=== PATIENT | female | born 1940 | race Caucasian/White ===

== ENCOUNTER → 2017-06-22 | Day surgery (SDC) | payer MEDICARE, OTHER ==
[2017-06-20 12:31] LABS: BASOPHILS % 0.6 % (0.0-1.0); EOSINOPHILS # (AUTO) 0.1 (0.0-0.4); EOSINOPHILS % 1.4 % (0.0-6.0); HEMATOCRIT 38.9 % (34.2-44.1); HEMOGLOBIN 13.1 g/dL (12.0-16.0); LYMPHOCYTES # (AUTO) 2.1 (1.0-3.2); LYMPHOCYTES % 29.4 % (18.0-39.1); MEAN CORPUSCULAR HEMOGLOBIN 30.3 pg (28-32); MEAN CORPUSCULAR HGB CONC 33.7 g/dL (31-35); MONOCYTES # (AUTO) 0.7 (0.2-0.8); NEUTROPHILS # (AUTO) 4.1 (2.1-6.9); PLATELET COUNT 279 x10e3/uL (140-360); RED BLOOD COUNT 4.32 x10e6/uL (3.6-5.1); RED CELL DISTRIBUTION WIDTH 12.7 % (11.7-14.4)
[2017-06-20 12:42] LABS: INR 1.03; PROTHROMBIN TIME 12.7 seconds (11.9-14.5)
[2017-06-20 12:43] LABS: PARTIAL THROMBOPLASTIN TIME 31.8 seconds (23.8-35.5)
[2017-06-20 12:50] LABS: ANION GAP 13.6 mmol/L (8-16); BLOOD UREA NITROGEN 13 mg/dL (7-26); BUN/CREATININE RATIO 16 (6-25); CALCIUM 9.5 mg/dL (8.4-10.2); CARBON DIOXIDE 25 mmol/L (22-29); CHLORIDE 106 mmol/L (98-107); CHOL/HDL RATIO 3.5 (3.0-3.6); CHOLESTEROL 171 MD/DL (0-199); CREATININE, SERUM 0.83 mg/dL (0.57-1.11); EST GLOMERULAR FILTRATION RATE > 60 ML/MIN (60-); GLUCOSE 94 mg/dL (74-118); HDL CHOLESTEROL 49 MG/DL (40-60); LDL CHOLESTEROL 62 MG/DL (60-130); POTASSIUM 4.6 mmol/L (3.5-5.1); SODIUM 140 mmol/L (136-145); TRIGLYCERIDES 300 MG/DL (0-149)
--- NOTE | 2017-06-20 12:52 | Diagnostic Imaging Report ---
PROCEDURE: Frontal and lateral views of the chest. COMPARISON: Chest radiograph 12/03/2016 INDICATIONS: PRE-OPERATIVE FOR HEART CATHETER FINDINGS: Lines/tubes: None. Lungs: The lungs are well inflated and clear. There is no evidence of pneumonia or pulmonary edema. Pleura: There is no pleural effusion or pneumothorax. Heart and mediastinum: Aortic calcifications. The heart and the mediastinum are normal. Bones: No acute bony abnormality. Mild degenerative changes of the spine. Osseous demineralization. Upper abdomen: Surgical clips overlying the abdomen on lateral view likely represent cholecystectomy clips. Persistent focal eventration of the anterior right hemidiaphragm. IMPRESSION: No acute cardiopulmonary disease. Dictated by: Dereje Arthur M.D. on 06/20/2017 at 12:51 Electronically approved by: Dereje Arthur M.D. on 06/20/2017 at 12:51
[~2017-06-22] VITALS: Ht 166.4 cm; Wt 99.8 kg
[~2017-06-22] MED LIST: ALLEGRA ALLERG180 MG PO; AMLODIPINE BESY10 MG PO; BACTRIM 400-801 EACH PO; COMPLETE MULTI1 EAC1 PO; ECOTRIN81 MG PO; FENTANYL CITRATE/PF 100MCG/2 ML INJ ONE; FISH OIL 1,0001 EAC2 PO; HEPARIN SOD/SOD CHLORIDE 2,000 ML ONE; LEXAPRO10 MG PO; LIDOCAINE HCL 2% LOCAL 20 ML VIAL ONE; MIDAZOLAM HCL 2 MG/2 ML VIAL ONE; MOBIC15 MG PO; NEXIUM20 MG PO; SIMVASTATIN40 MG PO; SODIUM CHLORIDE 0.9% 1000ML 1,000 ML ONE; VITAMIN D35000 UNI1 PO; probiotic PO
--- OUTSIDE RECORDS SUMMARY | 2017-06-22 09:10 | XMS REPORT ---
Author Author [facility] Address Unknown Phone Unavailable Care Team Providers Care Review Rn Name Role Phone EVELIO NOBLE Unavailable Unavailable DERRICK STONER Unavailable Unavailable Problems This patient has no known problems. Allergies, Adverse Reactions, Alerts This patient has no known allergies or adverse reactions. Medications This patient has no known medications. Results Test Description Test Time Test Comments Text Results Atomic Results Result Comments CHEST 2 VIEWS [place] [address] Patient Name: JUNAID GONZALEZ MR #: [id number] : 1940 Age/Sex: 76/F Req # : [id number] Adm Physician: Ordered by: EVELIO NOBLE MD Report #: [id number] Location: HEALTH INSURANCE SPECIALIST Room/Bed: Procedure: [id number] DX/CHEST 2 VIEWS Exam Date: 06/20/17 Exam Time : 1230 REPORT STATUS: Signed PROCEDURE: Frontal and lateral views of the chest. COMPARISON: Chest radiograph 12/03/2016 INDICATIONS: PRE -OPERATIVE FOR HEART CATHETER FINDINGS: Lines/tubes: None. Lungs: The lungs are well inflated and clear. There is no evidence of pneumonia or pulmonary edema. Pleura: There is no pleural effusion or pneumothorax. Heart and mediastinum: Aortic calcifications. The heart and the mediastinum are normal. Bones: No acute bony abnormality. Mild degenerative changes of the spine. Osseous demineralization. Upper abdomen: Surgical clips overlying the abdomen on lateral view likely represent cholecystectomy clips. Persistent focal eventration of the anterior right hemidiaphragm. IMPRESSION: No acute cardiopulmonary disease. Dictated by: Dereje Melgar M.D. on 06/20/2017 at 12:51 Electronically approved by: Dereje Melgar M.D. on 06/20/2017 at 12:51 Dictated By: DEREJE MELGAR MD 1252 Transcribed By: ISMAEL on 06/20/17 1252 COPY TO: EVELIO NOBLE MD CT CHEST W [place] [address] Patient Name: JUNAID GONZALEZ MR #: [id number] : 1940 Age/Sex: 76/F Req # : [id number] Adm Physician: Ordered by: DERRICK STONER MD Report #: [id number] Location: CT Room/Bed: Procedure: [id number] CT/CT CHEST W Exam Date: 03/15/17 Exam Time: 1420 REPORT STATUS: Signed PROCEDURE: CT scan of the chest WITH intravenous contrast, using standard protocol. TECHNIQUE: The chest was scanned utilizing a multidetector helical scanner from the lung apex through the level of the adrenal glands after the IV administration of 100 cc of Isovue 370. Coronal and sagittal multiplanar reformations were obtained. COMPARISON: Chest CT 02/09/2007 INDICATIONS: SHORT OF BREATH FINDINGS: Lines/tubes: None. Lungs and Airways: The lungs and airways are normal with no focal abnormality demonstrated. Pleura: The pleural spaces are clear. Heart and mediastinum: The thyroid gland is normal. No significant mediastinal, hilar or axillary lymphadenopathy is seen. The heart and pericardium are within normal limits. Trace fluid within the pericardial recesses. Mild coronary artery and aortic atherosclerotic calcifications. Main pulmonary artery measures 3.4 cm diameter, which can be seen with pulmonary hypertension. Ascending aorta measures 3 cm. Soft tissues: Normal. Abdomen: Cholecystectomy clips. Limited contrast-enhanced views of the upper abdomen show no abnormality within the visualized liver, spleen, pancreas, or kidneys. The visualized portions of the adrenal glands are normal. Bones: No acute or aggressive osseus lesions. IMPRESSION: 1. No acute abnormalities. 2. Enlarged pulmonary artery which can be seen with pulmonary hypertension. Dictated by: Dereje Melgar M.D. on 03/15/2017 at 14:55 Electronically approved by: Dereje Melgar M.D. on 03/15/2017 at 14:55 Dictated By: DEREJE MELGAR MD [id number] Transcribed By: ISMAEL on 03/15/17 3609 COPY TO: DERRICK STONER MD
[2017-06-22 10:20] VITALS: BP 145/65
--- NOTE | 2017-06-22 18:50 | Operative Report ---
DATE OF PROCEDURE: June 22, 2017 PROCEDURE: Cardiac catheterization. INDICATIONS: Dyspnea and abnormal CT of chest. ESTIMATED BLOOD LOSS: 5 mL. ANESTHESIA: Lidocaine for local anesthesia and Fentanyl and versed for conscious sedation. DESCRIPTION OF PROCEDURE: After informed consent, patient was brought to the cardiac catheterization laboratory and placed on the table. Both groins were painted and draped in a sterile fashion. Lidocaine was injected in the right groin for local anesthesia. Right femoral artery was accessed by Seldinger technique, and a 5-Djiboutian sheath was placed in the right femoral artery. Left main artery was cannulated using a JL4 5-Djiboutian catheter. Coronary angiogram was performed and images obtained in multiple views. The right coronary artery was cannulated using a 3DRC 5-Djiboutian catheter. Coronary angiogram was performed and images obtained in multiple views. LV gram was performed using a pigtail catheter. Initial plan was to do a right heart catheterization. Attempts were made to access the right femoral vein. The right femoral vein could not be accessed, so Lidocaine was injected in the left groin. Attempts were made to access the left femoral vein too. However, this was also unsuccessful, so right heart catheterization was not performed. The patient tolerated the procedure without any complications. REPORT: LEFT MAIN: Normal caliber and no significant stenosis. LEFT ANTERIOR DESCENDING: Normal caliber and no significant stenosis. LEFT CIRCUMFLEX: The left circumflex rises aberrantly from the right coronary artery, and there is no significant stenosis. RIGHT CORONARY ARTERY: Normal caliber and there is no significant stenosis. LV-GRAM: Normal LV function. Overall ejection fraction is 55% a 60%. HEMODYNAMICS: Aortic pressure is 151/69. LV pressure is 153/7. LVEDP is 12. PLAN: Medical management. . Job#: [id number] GH MTDD
== END | disposition home or self-care (01) ==
LOC: CATH LAB 09:07
DX: R06.00 Dyspnea, unspecified (principal); I10 Essential (primary) hypertension; R93.1 Abnormal findings on diagnostic imaging of heart and coronary circulation; E78.5 Hyperlipidemia, unspecified; Z01.810 Encounter for preprocedural cardiovascular examination; Z01.812 Encounter for preprocedural laboratory examination; Z01.818 Encounter for other preprocedural examination; Z79.82 Long term (current) use of aspirin; Z68.36 Body mass index [BMI] 36.0-36.9, adult; Z82.49 Family history of ischemic heart disease and other diseases of the circulatory system
CPT/HCPCS: 36415; 71046; 77002; 80048; 80061; 85025; 85610; 85730; 93005; 93460; C1766; J2001; J2250; J7030; 36140; 93452; 93458

== ENCOUNTER → 2017-07-06 | Outpatient (CLI) | payer MEDICARE, OTHER ==
[~2017-07-06] MED LIST changes: -FENTANYL CITRATE/PF 100MCG/2 ML INJ ONE; -HEPARIN SOD/SOD CHLORIDE 2,000 ML ONE; -LIDOCAINE HCL 2% LOCAL 20 ML VIAL ONE; -MIDAZOLAM HCL 2 MG/2 ML VIAL ONE; -SODIUM CHLORIDE 0.9% 1000ML 1,000 ML ONE
--- NOTE | 2017-07-08 18:12 | Diagnostic Imaging Report ---
#[id number] - MGSCRBIL #BILATERAL DIGITAL SCREENING MAMMOGRAM WITH CAD: 07/06/2017 Comparison is made to exams dated: 06/16/2016 mammogram and 10/18/2014 mammogram - [facility]. Current study contains 4 films. There are scattered fibroglandular elements in both breasts. Current study was also evaluated with a Computer Aided Detection (CAD) system. There are benign calcifications and a density in both breasts. There also are benign lymph nodes in both breasts. No significant masses, calcifications, or other findings are seen in either breast. There has been no significant interval change. IMPRESSION: BENIGN There is no mammographic evidence of malignancy. A 1 year screening mammogram is recommended. The patient will be notified by letter of the results. Glenroy doran/diane:07/07/2017 18:52:03 Plywood Stock Grader: Chioma WYNN)(Polina), [facility] letter sent: Compared to Prior B9 Mammogram BI-RADS: 2 Benign
== END ==
LOC: MAMMO 12:04
PROVIDERS: ATTEND Internal Medicine
DX: Z12.31 Encounter for screening mammogram for malignant neoplasm of breast (principal)
CPT/HCPCS: 77067

== ENCOUNTER → 2018-01-10 | Outpatient (CLI) | payer MEDICARE, OTHER ==
--- NOTE | 2018-01-10 16:55 | Diagnostic Imaging Report ---
RENAL ULTRASOUND TECHNIQUE: Ultrasound evaluation of the KIDNEYS. Color Doppler evaluation was utilized to supplement the evaluation. HISTORY: Cyst follow-up COMPARISON: Images from ultrasound performed November 25, 2016. DISCUSSION: RIGHT KIDNEY: The right kidney measures 11 cm in length. The cortex measures 1.6 cm in thickness. Parenchyma is within normal limits. No hydronephrosis or solid mass lesions. LEFT KIDNEY: The left kidney measures 11 cm in length. The cortex measures 1.5 cm in thickness. Parenchyma is within normal limits. No hydronephrosis or solid mass lesions. A simple and stable appearing superior cyst measures 1 x 0.7 x 1.3 cm. A simple and stable inferior peripelvic cyst measures 0.9 x 0.8 x 1cm. BLADDER: Decompressed, which limits evaluation. IMPRESSION: Stable, simple appearing left renal cysts. Signed by: Dr. Edinson Benedict D.O., M.M.M. on 01/10/2018 4:51 PM
== END ==
LOC: US 12:49
PROVIDERS: ATTEND Urology
DX: N28.1 Cyst of kidney, acquired (principal)
CPT/HCPCS: 76770

== ENCOUNTER → 2018-02-15 | Day surgery (SDC) | payer MEDICARE, OTHER ==
[2018-02-14 17:24] LABS: BASOPHILS % 0.5 % (0.0-1.0); EOSINOPHILS # (AUTO) 0.1 (0.0-0.4); EOSINOPHILS % 1.6 % (0.0-6.0); HEMATOCRIT 37.9 % (34.2-44.1); HEMOGLOBIN 12.6 g/dL (12.0-16.0); LYMPHOCYTES % 26.9 % (18.0-39.1); MEAN CORPUSCULAR HEMOGLOBIN 31.3 pg (28-32); MEAN CORPUSCULAR HGB CONC 33.2 g/dL (31-35); MEAN CORPUSCULAR VOLUME 94.3 fL (81-99); MONOCYTES # (AUTO) 0.7 (0.2-0.8); MONOCYTES % 9.4 % (4.4-11.3); NEUTROPHILS # (AUTO) 4.5 (2.1-6.9); NEUTROPHILS % 61.2 % (38.7-80.0); PLATELET COUNT 251 x10e3/uL (140-360); RED BLOOD COUNT 4.02 x10e6/uL (3.6-5.1); RED CELL DISTRIBUTION WIDTH 12.2 % (11.7-14.4)
[2018-02-14 17:33] LABS: INR 0.86; PROTHROMBIN TIME 12.5 seconds (11.9-14.5)
[2018-02-14 17:34] LABS: PARTIAL THROMBOPLASTIN TIME 31.8 seconds (23.8-35.5)
[2018-02-14 17:40] LABS: ANION GAP 12.7 mmol/L (8-16); BLOOD UREA NITROGEN 14 mg/dL (7-26); BUN/CREATININE RATIO 18 (6-25); CALCIUM 9.7 mg/dL (8.4-10.2); CARBON DIOXIDE 25 mmol/L (22-29); CHLORIDE 103 mmol/L (98-107); EST GLOMERULAR FILTRATION RATE > 60 ML/MIN (60-); GLUCOSE 112 mg/dL (74-118); POTASSIUM 3.7 mmol/L (3.5-5.1); SODIUM 137 mmol/L (136-145)
--- NOTE | 2018-02-14 18:08 | Diagnostic Imaging Report ---
EXAMINATION: CHEST 2 VIEWS INDICATION: preop for heart cath COMPARISON: 06/20/2017. FINDINGS: TUBES and LINES: None. LUNGS: Right lower lobe linear atelectasis. There is no evidence of pneumonia or pulmonary edema. PLEURA: No pleural effusion or pneumothorax. HEART AND MEDIASTINUM: The cardiac silhouette is mildly enlarged. Calcifications of the aortic arch. BONES AND SOFT TISSUES: No acute osseous lesion. UPPER ABDOMEN: No free air under the diaphragm. IMPRESSION: No acute thoracic abnormality. Signed by: Dr. Angeles Granger M.D. on 02/14/2018 6:04 PM
[2018-02-15] VITALS (13 sets, daily range): BP systolic 100–146; BP diastolic 54–87
[~2018-02-15] MED LIST changes: +ACETAMINOPHEN 325 MG TAB ONE; +FENTANYL CITRATE/PF 100MCG/2 ML INJ ONE; +LIDOCAINE HCL 1% LOCAL INJ 20 ML VIAL ONE; +MIDAZOLAM HCL 2 MG/2 ML VIAL ONE; +SODIUM CHLORIDE 0.9% 100 ML 100 ML ONE; +SODIUM CHLORIDE 0.9% 1000ML 1,000 ML ONE; +SODIUM CHLORIDE 0.9% 500ML 500 ML ONE
--- NOTE | 2018-02-15 22:20 | Operative Report ---
DATE OF PROCEDURE: PROCEDURES PERFORMED 1. Right heart catheterization. 2. Pressure measurements. 3. Cardiac output. 4. Oxygen saturation. INDICATIONS: Shortness of breath, suspected pulmonary hypertension. DESCRIPTION OF PROCEDURE: After informed consent, patient brought to the cardiac catheterization laboratory and placed on the table. Both groins were painted and draped in a sterile fashion. Lidocaine injected in the right groin for local anesthesia. Right femoral artery was accessed by Seldinger technique. A 6-Italian sheath was placed in the right femoral vein. A [place]-Zeb catheter was advanced through the sheath into the right heart. Advance to the wedge position and pressures were obtained in the wedge position in the pulmonary artery, right ventricle, right atrium. O2 saturations also were obtained. Cardiac output was also measured. Patient tolerated the procedure without any complications. REPORT Pressures 1. Right atrium is 14 mmHg. 2. Right ventricle is 48/3 mmHg. 3. Pulmonary artery is 44/22 mmHg. 4. Pulmonary capillary wedge pressure is 18 mmHg. Saturations 1. Right atrium is 63%. 2. Right ventricle is 68%. 3. Pulmonary artery is 66%. 4. Ostial saturation is 92%. Cardiac output is 5.7 and cardiac index is 2.7 by thermodilution. IMPRESSION: Mild pulmonary hypertension. Job#: [id number] CQ
== END | disposition home or self-care (01) ==
LOC: CATH LAB 06:21
DX: I27.20 Pulmonary hypertension, unspecified (principal); I10 Essential (primary) hypertension; Z01.810 Encounter for preprocedural cardiovascular examination; Z01.812 Encounter for preprocedural laboratory examination; Z01.818 Encounter for other preprocedural examination; I25.10 Atherosclerotic heart disease of native coronary artery without angina pectoris; Z95.5 Presence of coronary angioplasty implant and graft; E78.5 Hyperlipidemia, unspecified; K21.9 Gastro-esophageal reflux disease without esophagitis; K44.9 Diaphragmatic hernia without obstruction or gangrene; I49.3 Ventricular premature depolarization; J45.909 Unspecified asthma, uncomplicated; Z79.82 Long term (current) use of aspirin
CPT/HCPCS: 36415; 71046; 80048; 85025; 85610; 85730; 93005; 93451; C1766; J2001; J2250; J7030; J7040

== ENCOUNTER 2018-05-27 12:14 | Emergency (ER) | payer MEDICARE, OTHER ==
[~2018-05-27] VITALS: Ht 166.4 cm; Wt 99.8 kg
[~2018-05-27 12:14] MED LIST changes: -ACETAMINOPHEN 325 MG TAB ONE; -FENTANYL CITRATE/PF 100MCG/2 ML INJ ONE; -LIDOCAINE HCL 1% LOCAL INJ 20 ML VIAL ONE; -MIDAZOLAM HCL 2 MG/2 ML VIAL ONE; -SODIUM CHLORIDE 0.9% 100 ML 100 ML ONE; -SODIUM CHLORIDE 0.9% 1000ML 1,000 ML ONE; -SODIUM CHLORIDE 0.9% 500ML 500 ML ONE
== END 2018-05-27 13:29 | disposition home or self-care (01) ==
LOC: FSED 12:14
DX: R05 Cough (principal); J20.9 Acute bronchitis, unspecified
CPT/HCPCS: 99282

== ENCOUNTER → 2018-06-23 | Outpatient (CLI) | payer MEDICARE, OTHER ==
--- NOTE | 2018-06-23 09:34 | Diagnostic Imaging Report ---
EXAM: CHEST 2 VIEWS, PA and lateral DATE: 06/23/2018 Time stamp on exam: 9:13 AM INDICATION: Asthma COMPARISON: 02/14/2018 FINDINGS: LINES/TUBES: None LUNGS: No consolidations or edema. Right hemidiaphragm is elevated secondary to focal eventration anteriorly. Posterior cardiophrenic sulcus are equal in location. PLEURA: No effusions or pneumothorax. HEART AND MEDIASTINUM: Normal size and contour. Calcification within the aorta. BONES AND SOFT TISSUES: No acute findings. IMPRESSION: No acute thoracic abnormality or interval change. Signed by: Dr. Glenroy Bush DO on 06/23/2018 9:31 AM
== END ==
LOC: RAD 09:11
PROVIDERS: ATTEND Internal Medicine
DX: J45.909 Unspecified asthma, uncomplicated (principal)
CPT/HCPCS: 71046

== ENCOUNTER → 2018-09-15 | Day surgery (SDC) | payer MEDICARE, OTHER ==
[2018-09-12 13:07] LABS: BASOPHILS % 0.6 % (0.0-1.0); EOSINOPHILS # (AUTO) 0.1 (0.0-0.4); EOSINOPHILS % 1.2 % (0.0-6.0); HEMOGLOBIN 13.6 g/dL (12.0-16.0); LYMPHOCYTES # (AUTO) 1.5 (1.0-3.2); LYMPHOCYTES % 20.8 % (18.0-39.1); MEAN CORPUSCULAR HEMOGLOBIN 29.9 pg (28-32); MEAN CORPUSCULAR HGB CONC 33.2 g/dL (31-35); MEAN CORPUSCULAR VOLUME 90.1 fL (81-99); MONOCYTES # (AUTO) 0.7 (0.2-0.8); MONOCYTES % 9.4 % (4.4-11.3); NEUTROPHILS # (AUTO) 4.9 (2.1-6.9); NEUTROPHILS % 67.7 % (38.7-80.0); PLATELET COUNT 283 x10e3/uL (140-360); RED BLOOD COUNT 4.55 x10e6/uL (3.6-5.1); RED CELL DISTRIBUTION WIDTH 12.7 % (11.7-14.4)
[~2018-09-15] MED LIST changes: +B&O 60MG R/S 60 MG SUPP PR ONE; +BOTULINUM TOXIN TYPE A 100 UNIT VIAL IM ONE; +DEXAMETHASONE SOD PHOS INJ 4 MG/ML VIAL ONE; +FENTANYL CITRATE/PF 100MCG/2 ML INJ ONE; +IOPAMIDOL 610MG/1ML 300 MG/ML VIAL IV ONE; +LIDOCAINE HCL 2% LOCAL INJ 5 ML SDV VIAL INJ ONE; +METOPROLOL TART50 MG PO; +ONDANSETRON HCL INJ 2MG/ML 2ML 2 MG/ML VIAL ONE; +PIPER-TAZ 3.375 GM 50 ML ONE; +PROPOFOL IV EMULSION 10 MG/ML 50 ML VIAL ONE; +SEVOFLURANE INHAL SOLN 250 ML PEN BTL ONE
--- OUTSIDE RECORDS SUMMARY | 2018-09-15 11:31 | XMS REPORT ---
Author Author [facility] Address Unknown Phone Unavailable Care Team Providers Care Scientific Diver Name Role Phone Polina LEE Unavailable Unavailable CAYENNE, EVELIO Unavailable Unavailable HAMPEL, KORI Unavailable Unavailable STONER, F MOHAMMAD Unavailable Unavailable Problems This patient has no known problems. Allergies, Adverse Reactions, Alerts This patient has no known allergies or adverse reactions. Medications This patient has no known medications. Results Test Description Test Time Test Comments Text Results Atomic Results Result Comments CHEST 2 VIEWS 2018-06-23 09:29:00 [place] [address] Patient Name: JUNAID GONZALEZ MR #: [id number] : 1940 Age/Sex: 77/F Req #: [id number] Adm Physician: Ordered by: ANTONIO LEE MD Report #: [id number] Location: [facility] Room/Bed: Procedure: [id number] DX/CHEST 2 VIEWS Exam Date: 06/23/18 Exam Time: 914 REPORT STATUS: Signed EXAM: CHEST 2 VIEWS, PA and lateral DATE: 06/23/2018 Time sta mp on exam: 9:13 AM INDICATION: Asthma COMPARISON: 02/14/2018 FINDINGS: LINES/TUBES: None LUNGS: No consolidations or edema. Right hemidiaphragm is elevated secondary to focal eventration anteriorly. Posterior cardiophrenic sulcus are equal in location. PLEURA: No effusions or pneumothorax. HEART AND MEDIASTINUM: Normal size and contour. Calcification within the aorta. BONES AND SOFT TISSUES: No acute findings. IMPRESSION: No acute thoracic abnormality or interval change. Signed by: Dr. Glenroy Bush DO on 06/23/2018 9:31 AM Dictated By: GLENROY BUSH DO 0 Transcribed By: XADNER on 06/23/18930 COPY TO: ANTONIO LEE MD CHEST 2 VIEWS 2018-02-14 18:02:00 [place] [address] Patient Name: JUNAID GONZALEZ MR #: [id number] : 1940 Age/Sex: 77/F Req #: [id number] Adm Physician: Ordered by: EVELIO NOBLE MD Report #: [id number] Location: DENTAL TECHNOLOGY ADVISOR Room/Bed: Procedure: [id number] DX/CHEST 2 VIEWS Exam Date: Exam Time: REPORT STATUS: Signed EXAMINATION: CHEST 2 VIEWS INDICATION: preop for heart cath COMPARISON: 06/20/2017. FINDINGS: TUBES and LINES: None. LUNGS: Right lower lobe linear atelectasis. There is no evidence of pneumonia or pulmonary edema. PLEURA: No pleural effusion or pneumothorax. HEART AND MEDIASTINUM: The cardiac silhouette is mildly enlarged. Calcifications of the aortic arch. BONES AND SOFT TISSUES: No acute osseous lesion. UPPER ABDOMEN: No free air under the diaphragm. IMPRESSION: No acute thoracic abnormality. Signed by: Dr. Angeles Andino M.D. on 02/14/2018 6:04 PM Dictated By: SILVIO ANDINO MD, MD 03 Transcribed By: XANDER on 02/14/181803 COPY TO: EVELIO NOBLE MD RENAL RETROPERITONEAL COMP 2018-01-10 16:46:00 [place] [address] Patient Name: JUNAID GONZALEZ MR #: [id number] : 1940 Age/Sex: 77/F Req #: [id number] Adm Physician: Ordered by: KORI RAM MD Report #: [id number] Location: US Room/Bed: Procedure: [id number] US/US RENAL RETROPERITONEAL COMP Exam Date: Exam Time: REPORT STATUS: Signed RENAL ULTRASOUND TECHNIQUE: Ultrasound evaluation of the KIDNEYS. Color Doppler evaluation was utilized to supplement the evaluation. HISTORY: Cyst follow-up COMPARISON: Images from ultrasound performed November 25, 2016. DISCUSSION: RIGHT KIDNEY: The right kidney measures 11 cm in length. The cortex measures 1.6 cm in thickness. Parenchyma is within normal limits. No hydronephrosis or solid mass lesions. LEFT KIDNEY: The left kidney measures 11 cm in length. The cortex measures 1.5 cm in thickness. Parenchyma is within normal limits. No hydronephrosis or solid mass lesions. A simple and stable appearing superior cyst measures 1 x 0.7 x 1.3 cm. A simple and stable inferior peripelvic cyst measures 0.9 x 0.8 x 1cm. BLADDER: Decompressed, which limits evaluation. IMPRESSION: Stable, simple appearing left renal cysts. Signed by: Vitaliy McmahanO., M.M.M. on 01/10/2018 4:51 PM Dictated By: ANETA ROSE DO 50 Transcribed By: XANDER on 01/10/181650 COPY TO: KORI RAM MD MAMMOGRAPHY DIGITAL SCR BILAT [place] [address] Patient Name: JUNAID GONZALEZ MR #: [id number] : 1940 Age/Sex: 76/F Req #: [id number] [facility] Physician: Ordered by: ANTONIO LEE MD Report #: [id number] Location: MAMMO Room/Bed: Procedure: [id number] MG/MAMMOGRAPHY DIGITAL SCR BILAT Exam Date: 07/06/17 Exam Time: 1220 REPORT STATUS: Signed #[id number] - MGSCRBIL #BILATERAL DIGITAL SCREENING MAMMOGRAM WITH CAD: 07/06/2017 Comparison is made to exams dated: 06/16/2016 mammogram and 10/18/2014 mammogram - [facility]. Current study contains 4 films. There are scattered fibroglandular elements in both breasts. Current study was also evaluated with a Computer Aided Detection (CAD) system. There are benign calcifications and a density in both breasts. There also are benign lymph nodes in both breasts. No significant masses, calcifications, or other findings are seen in either breast. There has been no significant interval change. IMPRESSION: BENIGN There is no mammographic evidence of malignancy. A 1 year screening mammogram is recommended. The patient will be notified by letter of the results. Glenroy doran/diane:07/07/2017 18:52:03 Tetryl Wringer Operator: Chioma MARTINEZ(Murphy)(M), [facility] letter sent: Compared to Prior B9 Mammogram BI-RADS: 2 Benign Dictated By: GLENROY BUSH DO 51 Transcribed By: DIANE on 07/07/171851 COPY TO: ANTONIO LEE MD CHEST 2 VIEWS [facility] [address] [place] [address] Patient Name: JUNAID GONAZLEZ MR #: [id number] : 1940 Age/Sex: 76/F Req #: [id number] Adm Physician: Ordered by: EVELIO NOBLE MD Report #: [id number] Location: DENTAL TECHNOLOGY ADVISOR Room/Bed: Procedure: [id number] DX/CHEST 2 VIEWS Exam Date: 06/20/17 Exam Time: 1230 REPORT STATUS: Signed PROCEDURE: Frontal and lateral views of the chest. COMPARISON: Chest radiograph 12/03/2016 INDICATIONS: PRE-OPERATIVE FOR HEART CATHETER FINDINGS: Lines/tubes: None. Lungs: [...] TO: EVELIO NOBLE MD CT CHEST W [place] [id number] [place] [address] Patient Name: JUNAID GONZALEZ MR #: [id number] : 1940 Age/Sex: 76/F Req #: [id number] Adm Physician: Ordered by: DERRICK STONER MD Report #: [id number] Location: CT Room/Bed: Procedure: [id number] CT/CT CHEST W Exam Date: 03/15/17 Exam [...] normal limits. Trace fluid within the pericardial rec esses. Mild coronary artery and aortic atherosclerotic calcifications. [...] at 14:55 Dictated By: DEREJE MELGAR MD 1454 Transcribed By: ISMAEL on 03/15/17 1450 COPY TO: DERRICK STONER MD
--- OUTSIDE RECORDS SUMMARY | 2018-09-15 11:31 | XMS REPORT | Clinical Summary ---
Author Author [facility] Address Unknown Phone Unavailable Care Team Providers Care Tariff Clerk Name Role Phone PCP Unavailable Allergies Not on File Medications Not on file Active Problems Not on file Encounters Care Team Description Date Type Specialty Brien Rico MD NOAH (obstructive sleep apnea) 04/01/2018 Hospital Encounter Guille Coreas RRT, RCP NOAH (obstructive sleep apnea) (Primary Dx) 03/24/2018 Outside Orders Guille Coreas RRT, RCP 03/24/2018 Outside Orders after 09/14/2017 Social History Date Tobacco Use Types Packs/Day Years Used Never Assessed Sex Assigned at Date Recorded Not on file Industry Job Start Date Occupation Not on file Not on file Not on file Travel End Travel History Travel Start No recent travel history available. Last Filed Vital Signs Not on file Plan of Treatment Not on file Procedures Comments Procedure Name Priority Date/Time Associated Diagnosis POLYSOMNOGRAPHY REPORT - 04/19/2018 SCAN 2:10 PM [employer] POLYSOMNOGRAPHY REPORT - 04/14/2018 SCAN 10:11 AM [employer] after 09/14/2017 Results * POLYSOMNOGRAPHY REPORT - SCAN (04/19/2018 2:10 PM [employer]) Narrative Performed At * POLYSOMNOGRAPHY REPORT - SCAN (04/14/2018 10:11 AM [employer]) Narrative Performed At after 09/14/2017 Insurance Payer Benefit Subscriber ID Type Phone Address Plan / Group MEDICARE MEDICARE A xxxxxxxxxxx Medicare B MCR SUPPLEMENT/INDIVIDUAL [place] xxxxxxxxxx [address] [place] ([place] [phone]
[2018-09-15 15:00] VITALS: BP 144/72
--- NOTE | 2018-11-01 04:05 | Operative Report ---
DATE OF PROCEDURE: 09/15/2018 SURGEON: Jonathan Caputo MD PREOPERATIVE DIAGNOSES: 1. Refractory urge incontinence. 2. Urinary tract infections. POSTOPERATIVE DIAGNOSES: 1. Refractory urge incontinence. 2. Urinary tract infections. 3. Grade 2-3 cystocele. 4. Grade 2-3 rectocele. 5. Atrophic (senile) vaginitis. 6. Grade 3 vaginal cuff prolapse. OPERATIONS PERFORMED: 1. Cystourethroscopy with bilateral ureteral catheterization and retrograde ureteropyelography (separate procedure performed for the urine tract infections). 2. Interpretation of retrograde pyelography. 3. Cystourethroscopy with intravesical injection of Botox (separate procedure performed for the diagnosis of the refractory urge incontinence). 4. Pelvic examination under anesthesia. ANESTHESIA: General. COMPLICATIONS: None. CLINICAL SUMMARY: Cassandra Iraheta is a 77-year-old woman with severe overactive bladder. She has a very small capacity bladder. She has urinary tract infections and stress type urinary incontinence as well as urge type urinary incontinence. She has failed medical and behavioral therapy. The patient is status post cystocele repair and a sling. She is brought for the above procedure. She is aware of the risks of bleeding, infection, injury to adjacent structures, need for additional procedures and elected to proceed. OPERATIVE PROCEDURE IN DETAIL: Informed consent was verified. Cassandra Iraheta was properly identified, taken to the operating room, placed on the cystoscopy table in supine position. Anesthesia was uneventfully begun. The patient was then carefully gently repositioned in the dorsal lithotomy position with all pressure points well padded. Her genitalia were prepared and draped in usual sterile fashion. The cystoscope sheath with obturator in place was atraumatically inserted in the patient's urethra and bladder were drained. Panendoscopy of the bladder revealed trabeculations, but no tumors, no stones, no diverticula and normally positioned configured ureteral orifices were identified. An 8-Chadian catheter was used to cannulate each ureter and retrograde ureteral pyelograms were performed. Interpretation of retrograde ureteropyelography: Contrast was instilled in a retrograde fashion bilaterally. There were no tumors, no stones, and no diverticula. Unobstructed drainage was observed bilaterally fluoroscopically. There was an obvious cystocele. Botox was dissolved in sterile saline and we injected 1 mL aliquots in an even distribution throughout the supratrigonal bladder. The patient's bladder was then drained and cystoscope withdrawn. Pelvic examination under anesthesia revealed a grade 2-3 cystocele, grade 2-3 rectocele. There was atrophic vaginitis. There was grade 3 vaginal cuff prolapse. There was no urethral hypermobility following the previous surgery. Correction of this patient's prolapse would require a sacral colpopexy with mesh. The patient was then uneventfully reversed from anesthesia, and taken to recovery in stable condition. Explicit postop instructions were given and we will follow the patient up in the office. Jonathan MD [place]/MODL /[id number] cc: Santosh Bejarano MD
== END | disposition home or self-care (01) ==
LOC: OR 11:16
PROVIDERS: ATTEND Urology
DX: N39.46 Mixed incontinence (principal); N39.0 Urinary tract infection, site not specified; N81.10 Cystocele, unspecified; N81.6 Rectocele; N95.2 Postmenopausal atrophic vaginitis; N32.81 Overactive bladder; N32.89 Other specified disorders of bladder; R06.02 Shortness of breath; I10 Essential (primary) hypertension; E78.5 Hyperlipidemia, unspecified; R01.1 Cardiac murmur, unspecified; K21.9 Gastro-esophageal reflux disease without esophagitis; Z88.6 Allergy status to analgesic agent; Z01.810 Encounter for preprocedural cardiovascular examination; Z01.812 Encounter for preprocedural laboratory examination
CPT/HCPCS: 36415; 52005; 52287; 74420; 85025; 93005; C1758; J0587; J1100; J2001; J2405; J2543; J2704; Q9967; J3010

== ENCOUNTER → 2019-01-16 | Outpatient (CLI) | payer MEDICARE, OTHER ==
[~2019-01-16] MED LIST changes: -B&O 60MG R/S 60 MG SUPP PR ONE; -BOTULINUM TOXIN TYPE A 100 UNIT VIAL IM ONE; -DEXAMETHASONE SOD PHOS INJ 4 MG/ML VIAL ONE; -FENTANYL CITRATE/PF 100MCG/2 ML INJ ONE; -IOPAMIDOL 610MG/1ML 300 MG/ML VIAL IV ONE; -LIDOCAINE HCL 2% LOCAL INJ 5 ML SDV VIAL INJ ONE; -ONDANSETRON HCL INJ 2MG/ML 2ML 2 MG/ML VIAL ONE; -PIPER-TAZ 3.375 GM 50 ML ONE; -PROPOFOL IV EMULSION 10 MG/ML 50 ML VIAL ONE; -SEVOFLURANE INHAL SOLN 250 ML PEN BTL ONE
--- NOTE | 2019-01-22 09:10 | Diagnostic Imaging Report ---
#[id number] - MGSCRBIL #BILATERAL DIGITAL SCREENING MAMMOGRAM WITH CAD: 01/16/2019 CLINICAL: Routine screening. Comparison is made to exams dated: 07/06/2017 mammogram and 06/16/2016 mammogram - [facility]. The tissue of both breasts is predominantly fatty. Current study was also evaluated with a Computer Aided Detection (CAD) system. There are benign calcifications in both breasts. There also are benign lymph nodes in both breasts. No significant masses, calcifications, or other findings are seen in either breast. There has been no significant interval change. IMPRESSION: BENIGN There is no mammographic evidence of malignancy. A 1 year screening mammogram is recommended. The patient will be notified by letter of the results. SVETLANA bell/diane:01/18/2019 15:46:34 Digital Marketing Analyst: Chioma MARTINEZ(Murphy)(M), [facility] letter sent: Compared to Prior B9 Mammogram BI-RADS: 2 Benign
== END ==
LOC: MAMMO 09:05
PROVIDERS: ATTEND Internal Medicine
DX: Z12.31 Encounter for screening mammogram for malignant neoplasm of breast (principal)
CPT/HCPCS: 77067